=== PATIENT | male | born 1945 | race Caucasian/White ===

== ENCOUNTER → 2017-09-10 07:25 | Outpatient (CLI) | payer MEDICAID, SELFPAY | PROVIDERS: Visit Provider Surgery | DX: Z53.9 Procedure and treatment not carried out, unspecified reason (principal) ==

== ENCOUNTER 2017-11-07 16:06 | Emergency (ER) | payer MEDICARE, MEDICAID, SELFPAY ==
[2017-11-07 16:07] VITALS: BP 126/92; PULSE 122; RESP 20; TEMP 36.9; O2SAT 97; BMI 26.4
[2017-11-07 16:16] LABS: Bedside Glucose 140 mg/dL (70-110)
--- NOTE | 2017-11-07 17:04 | ED.VISSUMM ---
- ER Visit Summary Date of Service: 11/07/17 Chief Complaint: Nausea, vomiting and diarrhea History of Present Illness: The patient is a 71 M he just felt weak for last several days. This morning around 730 he started having nausea, vomiting and diarrhea. He does have some abdominal pain it is only when he is having vomiting or diarrhea. He states it is cramping is diffuse. Currently he is pain-free. He denies fever or chills. He denies dysuria or melena. He states he has been urinating normally. Physical Examination: Vital signs are stable afebrile is tachycardic 122. He does not look septic or toxic. He does not look significantly dehydrated. H EENT exam unremarkable moist wheeze membranes. Neck nontender no lymphadenopathy. Lungs good all station bilaterally. Heart regular rhythm rate about 100 110 no murmur. Abdomen soft nontender, nondistended, normal bowel sounds without peritoneal signs. No hernias or masses. No signs of obstruction. Both the right upper and right lower quadrant unremarkable. He is moving all 4 extremities. They are neurovascularly intact. Calves are nontender without edema or cords. Neurologically is awake and alert without focal motor deficits. Back exam nontender. Test Results: CBC shows white count of 16 hours consistent with dehydration with a BUN and creatinine of 17 and 50. No bands. Electro lites unremarkable gap of 8. BUN of 18 creatinine of 1. Liver enzymes normal lipase normal. Due the patient's Dilantin recently being increased and not having it checked in him having nausea and vomiting I did obtain a Dilantin level which was 15. This is not elevated. Emergency Department Course and Treatment: Patient be treated with IV fluids and IV Zofran. Labs will be obtained. Clinically his exam is benign. Treatment Plan: Repeat exam patient is doing well at 2338. Abdomen is benign. He has been able to hold down p.o. fluids. Clinically and historically I do not feel he needs any imaging. There is no signs of obstruction. I think the white count is elevated from the nausea and vomiting itself. He is comfortable being discharged home with Zofran home pack. Follow-up with his primary care physician and return if worse. Disposition: Discharge Impression: Acute nausea, vomiting and diarrhea and had a viral gastroenteritis. This note was generated with [employer] dictation software. It may contain incorrect words, spelling, and punctuation that were not noted in review of the chart prior to signing ED Disposition - Plan for ED Patient: Chief Complaint: Abd Pain Referrals: Jimmy Rubio,Tracy Cisneros [Primary Care Provider] -
[2017-11-07] MEDS: Ondansetron 4 MG/2 ML Vial IV (17:22)
[2017-11-07] MEDS: 0.9% Normal Saline 1,000 ML 1000 ML IV (17:23)
[2017-11-07 17:29] LABS: Absolute Neutrophil Count 14.2 X10^3/uL (2.0-7.7); Basophil# 0.05 X10^3/uL; Basophil% 0.3 % (0-1); Eosinophil# 0.33 X10^3/uL; Eosinophils% 2.1 % (0-5); Hematocrit 50.5 % (40-54); Hemoglobin 17.3 g/dl (13.0-16.5); Lymphocyte % 4.4 % (19-41); Mean Corp Hgb Conc 34.3 g/gl (32-36); Mean Corpuscular Hgb 32.6 pg (27.0-32.0); Mean Corpuscular Volume 95.1 fL (80-94); Mean Platelet Vol. 8.2 fl (6.2-12.0); Monocyte# 0.68 X10^3/uL; Monocyte% 4.3 % (0-10); Neutrophil # 14.21 X10^3/uL (2.7-7.7); Neutrophil % 88.8 % (47-70); Platelet Count 286 K/mm3 (150-450); RBC Distribution Width CV 14.1 % (11.6-14.6); RBC Distribution Width SD 48.5 fl (35.1-43.9); Red Blood Count 5.31 M/mm3 (4.6-6.2)
[2017-11-07 17:36] LABS: POSITIVE COUNT NO; POSITIVE DIFFERENTIAL NO; POSITIVE MORPHOLOGY NO
[2017-11-07 17:41] LABS: AST(SGOT) 28 U/L (15-37); Alanine Aminotransfer ALT/SGPT 54 U/L (16-61); Albumin, Serum 4.6 g/dL (3.2-5.0); Alkaline Phosphatase 86 U/L (45-117); Anion Gap 8 (5-15); BUN 18 mg/dL (7-18); BUN/Creat Ratio 16.8 RATIO (10-20); Bilirubin, Direct 0.09 mg/dL (0.00-0.30); Calcium,Total 9.7 mg/dL (8.5-10.1); Chloride 102 mmol/L (98-107); Creatinine, Serum 1.07 mg/dL (0.70-1.30); EST Glomerular Filtration Rate 73 mL/min (>60); Est Glom Filt Rate - Afr Amer 88 mL/min (>60); Estimated Creatinine Clearance 67.28 ml/min; Globulin 4.8 g/dL (2.2-4.2); Glucose 121 mg/dL (74-106); Lipase 109 U/L (73-393); Potassium 4.3 mmol/L (3.5-5.1); Protein, Total 9.4 g/dL (6.4-8.2); Sodium Level 136 mmol/L (136-145)
[2017-11-07 17:58] LABS: Phenytoin (Dilantin) Level 15.3 mL (10.0-20.0)
[2017-11-07 18:54] VITALS: RESP 16
[2017-11-07 21:59] VITALS: BP 140/76; PULSE 91; RESP 20; O2SAT 95
--- NOTE | 2017-11-07 23:40 | ED.DEP ---
ED Disposition - Plan for ED Patient: Disposition: Home or Assisted Living Chief Complaint: Abd Pain Instructions: ED Gastroenteritis Viral Prescriptions: Ondansetron [Zofran Odt] 4 mg PO Q4H PRN PRN #7 tab.rapdis PRN Reason: Nausea Referrals: Jimmy Rubio,Tracy Cisneros [Primary Care Provider] - 1-2 Days if not improving Additional Instructions: Plenty of fluids and rest. Zofran as needed for nausea. Return if feeling worse or unable to keep fluids down. [place] diet and increase slowly.
[2017-11-08] MEDS: Ondansetron ODT 4 MG Tablet PO (00:08)
[2017-11-08 00:11] VITALS: BP 140/85; PULSE 88; RESP 12; O2SAT 98
== END 2017-11-08 00:11 | disposition home or self-care (01) ==
PROVIDERS: Emergency Provider Emergency Medicine
DX: A08.4 Viral intestinal infection, unspecified (principal); R11.2 Nausea with vomiting, unspecified; R19.7 Diarrhea, unspecified
CPT/HCPCS: 80048; 80076; 80185; 82962; 83690; 85025; 96374; 99283; J7030; A4216; J2405